=== PATIENT | female | born 1935 ===

== ENCOUNTER 2021-01-01 16:19 | Emergency (ER) | payer OTHER, MEDICAID ==
[~2021-01-01] VITALS: Ht 167.6 cm; Wt 99.8 kg
[2021-01-01 16:32] VITALS: BP 130/60
== END 2021-01-01 20:42 | disposition left against medical advice (07) ==
LOC: ER 16:19 → EDBD 16:19 → ER 20:42
DX: M25.562 Pain in left knee (principal); Z53.21 Procedure and treatment not carried out due to patient leaving prior to being seen by health care provider
CPT/HCPCS: 73562

== ENCOUNTER 2021-05-05 15:58 | Emergency (ER) | payer OTHER, MEDICAID ==
[~2021-05-05] VITALS: Ht 162.6 cm; Wt 79.8 kg
[2021-05-05 16:35] LABS: Hematocrit 32.5 % (36.0-46.0); Hemoglobin 10.7 g/dL (12.2-16.2); Mean Corpuscular Hemoglobin 29.3 pg (28.0-32.0); Mean Corpuscular Hgb Conc. 32.8 g/dL (32.0-36.0); Mean Corpuscular Volume 89.5 fL (80.0-100.0); Red Blood Cells 3.64 10^6/uL (4.0-5.20); Red Cell Distribution Width 16.4 % (11.8-14.3); White Blood Cell 5.4 10^3/uL (4.4-10.8)
[2021-05-05 16:44] LABS: Band Neutrophils % (manual) 0; Basophils % (manual) 0 (0.0-2.0); Blast Cells 0; Metamyelocytes % 0; Myelocytes % 0; Promyelocytes % 0; Reactive Lymphocytes 0
[2021-05-05 17:23] LABS: Eosinophils % (manual) 21 (0-7); Lymphocytes % (manual) 32 (10.0-50.0); Monocytes % (manual) 4 (0-12)
[2021-05-05 17:26] LABS: Albumin 3.4 g/dL (3.4-5.0); Bilirubin, Total 0.1 mg/dL (0.2-1.0); CRP High Sensitivity 0.12 mg/dL (< 0.3); Calcium 8.3 mg/dL (8.5-10.1); Magnesium 2.1 mg/dL (1.6-2.6); Potassium 4.6 mmol/L (3.5-5.1); Total Protein 6.9 g/dL (6.4-8.2)
[2021-05-05] MEDS ORDERED: ALBUTEROL SULF 2.5 MG/0.5ML(0.5%) NEB SOLN NEB ONE (18:45)
[2021-05-05] MEDS ORDERED: FUROSEMIDE 40 MG/4 ML VIAL IV ONE (18:45)
[2021-05-05] MEDS ORDERED: IPRATROPIUM BROM 0.5 MG/2.5ML INH SOL NEB ONE (18:45)
[2021-05-05 18:46] LABS: Urine Bacteria NONE SEEN /hpf (None Seen); Urine Blood Negative /uL (Negative); Urine Specific Gravity 1.018 (1.001-1.035); Urine WBC 15 /hpf (0 - 5)
[2021-05-05 20:00] VITALS: BP 159/72
== END 2021-05-05 20:17 | disposition home or self-care (01) ==
LOC: EDBD 15:58 → ER 15:58
DX: I11.0 Hypertensive heart disease with heart failure (principal); I50.9 Heart failure, unspecified; N39.0 Urinary tract infection, site not specified; J44.9 Chronic obstructive pulmonary disease, unspecified; Z20.822 Contact with and (suspected) exposure to COVID-19
CPT/HCPCS: 36415; 71045; 80053; 81001; 82728; 83615; 83735; 83880; 84484; 85007; 85027; 86141; 87426; 93005; 99285; J1940; J7644